=== PATIENT | female | born 1975 | race African-American/Black ===

== ENCOUNTER 2017-02-23 07:16 | Emergency (ER) | payer OTHER ==
[~2017-02-23] VITALS: Ht 160 cm; Wt 98.4 kg
[~2017-02-23 07:16] MED LIST: ALBU1.25 NEB; IBUP-1027 PO; LABE200T2 PO; PROAIR HFA8.5 GM IH
--- NOTE | 2017-02-23 08:08 | PHYS DOC ---
Past Medical History Past Medical History: Asthma, Hypertension, Other Additional Past Medical Histor: heart murmur Past Surgical History: Cholecystectomy, , Other Additional Past Surgical Histo: fibroid Alcohol Use: None Drug Use: None Adult General Chief Complaint Chief Complaint: ASTHMA HPI HPI Patient is a 41 year old female with history of hypertension and asthma who presents today with shortness of breath and coughing that began last night. Patient states she is not able to get refills for her blood pressure and asthma medications because she does not have medical insurance. She states she is waiting for a medical card. Patient denies any fever. Denies any chest pain. She states she is currently being worked up for heart failure. Review of Systems Review of Systems Constitutional: Denies fever or chills [] Eyes: Denies change in visual acuity, redness, or eye pain [] HENT: Denies nasal congestion or sore throat [] Respiratory: cough and shortness of breath [] Cardiovascular: No additional information not addressed in HPI [] GI: Denies abdominal pain, nausea, vomiting, bloody stools or diarrhea [] : Denies dysuria or hematuria [] Musculoskeletal: Denies back pain or joint pain [] Integument: Denies rash or skin lesions [] Neurologic: Denies headache, focal weakness or sensory changes [] Endocrine: Denies polyuria or polydipsia [] Current Medications Current Medications Current Medications Medications (Trade) Dose Ordered Sig/[facility] Start Time Stop Time Status Last Admin Dose Admin Albuterol/ Ipratropium (Duoneb) 3 ml 1X ONCE 02/23/17 08:30 02/23/17 08:31 DC 02/23/17 08:17 3 ML Amlodipine Besylate (Norvasc) 20 mg 1X ONCE 02/23/17 08:30 02/23/17 08:31 DC 02/23/17 08:49 20 MG Benzonatate (Tessalon Perle) 100 mg 1X ONCE 02/23/17 08:30 02/23/17 08:31 DC 02/23/17 08:49 100 MG Carvedilol (Coreg) 12.5 mg 1X ONCE 02/23/17 08:30 02/23/17 08:31 DC 02/23/17 08:51 12.5 MG Prednisone (Prednisone) 60 mg 1X ONCE 02/23/17 08:30 02/23/17 08:31 DC 02/23/17 08:49 60 MG Allergies Allergies Allergies Coded Allergies Type Severity Reaction Last Updated Verified No Known Drug Allergies 02/23/17 No Physical Exam Physical Exam Constitutional: Well developed, well nourished, no acute distress, non-toxic appearance. [] HENT: Normocephalic, atraumatic, bilateral external ears normal, oropharynx moist, no oral exudates, nose normal. [] Eyes: PERRLA, EOMI, conjunctiva normal, no discharge. [] Neck: Normal range of motion, no tenderness, supple, no stridor. [] Cardiovascular:Heart rate regular rhythm, no murmur [] Lungs & Thorax: Patient appears to have increased work of breathing with diminished breath sounds to posterior lower lung bases. Abdomen: Bowel sounds normal, soft, no tenderness, no masses, no pulsatile masses. [] Skin: Warm, dry, no erythema, no rash. [] Back: No tenderness, no CVA tenderness. [] Extremities: No tenderness, no cyanosis, no clubbing, ROM intact, no edema. [] Neurologic: Alert and oriented X 3, normal motor function, normal sensory function, no focal deficits noted. [] Psychologic: Affect normal, judgement normal, mood normal. [] Current Patient Data Vital Signs Vital Signs Date Time Temp Pulse Resp B/P Pulse Ox O2 Delivery O2 Flow Rate FiO2 02/23/17 08:51 80 198/93 02/23/17 08:19 98 Room Air 02/23/17 07:30 98.4 19 98.4 Lab Values Laboratory Tests Test 02/23/17 07:45 02/23/17 08:35 Urine Collection Type Unknown Urine Color Yellow Urine Clarity Clear Urine pH 7.0 Urine Specific [place] <=1.005 Urine Protein Negativemg/dL (NEG-TRACE) Urine Glucose (UA) Negativemg/dL (NEG) Urine Ketones (Stick) Negativemg/dL (NEG) Urine Blood Negative (NEG) Urine Nitrite Negative (NEG) Urine Bilirubin Negative (NEG) Urine Urobilinogen Dipstick 0.2mg/dL (0.2 mg/dL) Urine Leukocyte Esterase Moderate (NEG) Urine RBC Occ/HPF (0-2) Urine WBC 5-10/HPF (0-4) Urine Squamous Epithelial Cells Mod/LPF Urine Bacteria 0/HPF (0-FEW) Urine Opiates Screen Neg (NEG) Urine Methadone Screen Neg (NEG) Urine Barbiturates Neg (NEG) Urine Phencyclidine Screen Neg (NEG) Urine Amphetamine/Methamphetamine Neg (NEG) Urine Benzodiazepines Screen Neg (NEG) Urine Cocaine Screen Pos (NEG) Urine Cannabinoids Screen Pos (NEG) Urine Ethyl Alcohol Neg (NEG) White Blood Count 10.6x10^3/uL (4.0-11.0) Red Blood Count 4.61x10^6/uL (3.50-5.40) Hemoglobin 10.2g/dL (12.0-15.5) L Hematocrit 32.7% (36.0-47.0) L Mean Corpuscular Volume 71fL (79-100) L Mean Corpuscular Hemoglobin 22pg (25-35) L Mean Corpuscular Hemoglobin Concent 31g/dL (31-37) Red Cell Distribution Width 20.7% (11.5-14.5) H Platelet Count 305x10^3/uL (140-400) Neutrophils (%) (Auto) 55% (31-73) Lymphocytes (%) (Auto) 29% (24-48) Monocytes (%) (Auto) 8% (0-9) Eosinophils (%) (Auto) 8% (0-3) H Basophils (%) (Auto) 0% (0-3) Neutrophils # (Auto) 5.8x10^3uL (1.8-7.7) Lymphocytes # (Auto) 3.0x10^3/uL (1.0-4.8) Monocytes # (Auto) 0.8x10^3/uL (0.0-1.1) Eosinophils # (Auto) 0.8x10^3/uL (0.0-0.7) H Basophils # (Auto) 0.0x10^3/uL (0.0-0.2) Platelet Estimate Pending Sodium Level 141mmol/L (136-145) Potassium Level 4.2mmol/L (3.5-5.1) Chloride Level 106mmol/L (98-107) Carbon Dioxide Level 28mmol/L (21-32) Anion Gap 7 (6-14) Blood Urea Nitrogen 10mg/dL (7-20) Creatinine 1.3mg/dL (0.6-1.0) H Estimated GFR (Cockcroft-Gault) 54.9 Glucose Level 98mg/dL (70-99) Calcium Level 8.6mg/dL (8.5-10.1) Creatine Kinase 319U/L (26-192) H Creatine Kinase MB (Mass) 1.7ng/mL (0.0-3.6) Creatine Kinase MB Relative Index 0.5% (0-4) Troponin I Quantitative 0.029ng/mL (0.000-0.055) FD-Yez-N-Type Natriuretic Peptide 187pg/mL (0-124) H Ethyl Alcohol Level < 10mg/dL (0-10) Laboratory Tests 02/23/17 08:35 Laboratory Tests 02/23/17 08:35 EKG EKG [] Interpretation Time: 07:[address] Stephen sinus rhythm, heart rate 76, QRS interval 76 , no STEMI Radiology/Procedures Radiology/Procedures [] Course & Med Decision Making Course & Med Decision Making Pertinent Labs and Imaging studies reviewed. (See chart for details) Patient is in the ED with cough and shortness of breath that began yesterday. She has history of asthma and does not have inhalers at home. She was short of air on arrival to the ED. 07:[address] Stephen sinus rhythm, heart rate 76, QRS interval 76 , no STEMI. Chest x-ray interpreted by radiologist is negative for any acute findings. CBC with hemoglobin of 10.2 hematocrit 32%. BMP with creatinine of 1.3. BNP 187 , patient states she is being worked up for CHF at [facility]. Vitals on arrival to the ED BP was 196/106 with a heart rate of 79, O2 sats 99% on room air, respirations 19, temperature 98.4, patient has history of hypertension, she is supposed to be on Coreg and amlodipine which she is not currently taking because she does not have a medical card to pay for her medications. She states she got approval for the medical card and will try and see if she can get refills for her blood pressure medicines. She was given Coreg and amlodipine in the ED. BP 168/65 with a heart rate of 80 right now. She was given a DuoNeb treatment. She was also given Decadron. Her O2 sats have remained above 98%. She states her breathing is back to her baseline and she feels better. Her urine was positive for UTI and patient stated she has had UTI symptoms, discharged with cephalexin. She was discharged with Advair albuterol inhaler and Singulair. I recommended she follows up with her primary care doctor at [facility] in the next 3-7 days. She was instructed to return to the ED at any point symptoms worsen or she has concerning symptoms. Dragon Disclaimer Dragon Disclaimer This electronic medical record was generated, in whole or in part, using a voice recognition dictation system. Departure Departure Impression: Primary Impression: Asthma exacerbation Additional Impressions: Accelerated hypertension UTI (urinary tract infection) Disposition: HOME, SELF-CARE Condition: STABLE Referrals: NO PCP (PCP) Follow-up with your doctor at [facility] in 3-7 days Patient Instructions: Asthma, Adult, Hypertension Additional Instructions: You were seen for symptoms consistent with asthma exacerbation. Please use the prescribed medicines as ordered. Blood pressure was also elevated in the ED. Try and get refills for your blood pressure medicine as soon as possible and take them as prescribed. Follow-up with your doctor in the next 3-7 days. Come back to the ED at any point symptoms worsen. Scripts Cephalexin 500 Mg Tablet1 Tab PO BID #14 TAB Prov:FLORIDALMA GRAHAM APRN 02/23/17 Guaifenesin/Codeine Phosphate (Guaifenesin Ac Cough Syrup)473 Ml Liquid5 Ml PO Q4HRS #120 ML Prov:FLORIDALMA GRAHAM APRN 02/23/17 Montelukast Sodium (Montelukast Sodium Tablet)10 Mg Tablet1 Tab PO DAILY #30 TAB Ref 5 Prov:FLORIDALMA GRAHAM APRN 02/23/17 Albuterol Sulfate (Albuterol Sulfate Neb Soln)1.25 Mg/3 Ml Vial.neb1 Vial NEB Q6HRS #150 ML Prov:FLORIDALMA GRAHAM APRN 02/23/17 Albuterol Sulfate (Proair Respiclick)90 Mcg Aer.pow.ba1 Puff IH PRN Q6HRS PRN SHORTNESS OF BREATH #1 INHALER Prov:FLORIDALMA GRAHAM APRN 02/23/17 Fluticasone/Salmeterol (Advair 250-50 Diskus)1 Each Disk.w.dev1 Puff IH BID #1 INHALER Ref 1 Prov:KATARZYNAFLORIDALMA ROD CAPTION WRITER 02/23/17 Problem Qualifiers Additional Impressions: UTI (urinary tract infection) Urinary tract infection type: acute cystitis Hematuria presence: without hematuria Qualified Code: N30.00 - Acute cystitis without hematuria KATARZYNATETOFLORIDALMA Romero CAPTION WRITER Feb 23, 2017 08:07
--- NOTE | 2017-02-23 08:09 | RAD ---
Chest, 2 views, 02/23/2017: History: Cough, asthma The heart size and pulmonary vascularity are normal. No pulmonary infiltrate is seen. There is no evidence of pleural fluid. Mild spurring is present in the spine. IMPRESSION: No acute cardiopulmonary abnormality is detected.
[2017-02-23] MEDS ORDERED: BENZONATATE 100 MG CAPSULE. PO ONE (08:30)
[2017-02-23] MEDS ORDERED: IPRATRPIUM/ALBUTEROL 0.5/2.5MG 3 ML NEBU. NEB ONE (08:30)
[2017-02-23] MEDS ORDERED: PREDNISONE 20 MG TABLET PO ONE (08:30)
[2017-02-23] MEDS ORDERED: CARVEDILOL 12.5 MG TABLET. PO ONE (08:30)
[2017-02-23] MEDS ORDERED: AMLODIPINE BESYLATE 5 MG TABLET. PO ONE (08:30)
--- NOTE | 2017-02-23 08:38 | EKG ---
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
[2017-02-23 08:48] LABS: BILIRUBIN,URINE NEGATIVE (NEG); GLUCOSE,URINE NEGATIVE (NEG); NITRITE,URINE NEGATIVE (NEG); PROTEIN,URINE NEGATIVE (NEG-TRACE); UROBILINOGEN,URINE 0.2 mg/dL (0.2 mg/dL)
[2017-02-23 08:56] LABS: BARBITURATES NEG (NEG); BENZODIAZEPINES NEG (NEG); CANNABINOIDS POS (NEG); COCAINE POS (NEG); METHADONE NEG (NEG); OPIATES NEG (NEG); PHENCYCLIDINE NEG (NEG)
[2017-02-23 08:57] LABS: ETHANOL, URINE NEG (NEG)
[2017-02-23 08:59] LABS: BASO % 0 % (0-3); EOS % 8 % (0-3); HEMATOCRIT 32.7 % (36.0-47.0); HEMOGLOBIN 10.2 g/dL (12.0-15.5); LYMPH % 29 % (24-48); MEAN CORPUSCULAR HEMOGLOBIN 22 pg (25-35); MEAN CORPUSCULAR HGB CONC 31 g/dL (31-37); MEAN CORPUSCULAR VOLUME 71 fL (79-100); MONO % 8 % (0-9); NEUT % 55 % (31-73); PLATELET COUNT 305 x10^3/uL (140-400); RED BLOOD COUNT 4.61 x10^6/uL (3.50-5.40); RED CELL DISTRIBUTION WIDTH 20.7 % (11.5-14.5); WHITE BLOOD COUNT 10.6 x10^3/uL (4.0-11.0)
[2017-02-23 09:02] LABS: RBC,URINE OCC /HPF (0-2)
[2017-02-23 09:03] LABS: BACTERIA,URINE 0 /HPF (0-FEW); SQUAMOUS EPITHELIAL CELL,UR MOD /LPF
[2017-02-23 09:09] LABS: CALCIUM 8.6 mg/dL (8.5-10.1); CREATININE 1.3 mg/dL (0.6-1.0); GFR 54.9; POTASSIUM 4.2 mmol/L (3.5-5.1)
[2017-02-23 09:22] LABS: CKMB INDEX 0.5 % (0-4); CKMB MASS 1.7 ng/mL (0.0-3.6)
[2017-02-23 10:00] VITALS: BP 156/80
[2017-02-23] MEDS ORDERED: ALBU1.25 NEB (10:01)
[2017-02-23] MEDS ORDERED: PROAIR RESPICL90 MCG IH (10:01)
[2017-02-23] MEDS ORDERED: GUAI473L15 PO (10:01)
[2017-02-23] MEDS ORDERED: FLUT1DIS3 IH (10:01)
[2017-02-23] MEDS ORDERED: MONT10TA9 PO (10:01)
[2017-02-23] MEDS ORDERED: CEPH500T PO (10:23)
[2017-02-23 11:01] LABS: ANISOCYTOSIS MOD; HYPOCHROMIA MOD; MICROCYTOSIS MOD; PLT ESTIMATE ADEQUATE (ADEQUATE)
== END 2017-02-23 10:14 | disposition home or self-care (01) ==
LOC: ER 07:16
DX: J45.901 Unspecified asthma with (acute) exacerbation (principal); I10 Essential (primary) hypertension; N39.0 Urinary tract infection, site not specified; Z90.49 Acquired absence of other specified parts of digestive tract; Z98.890 Other specified postprocedural states
CPT/HCPCS: 36415; 71020; 80048; 80305; 80320; 81001; 82553; 83880; 84484; 85007; 85027; 93005; 94640; 99285; J7512; J7620; G0480; G0481